=== PATIENT | male | born 1995 | race Caucasian/White ===

== ENCOUNTER 2021-10-16 06:42 | Emergency (ER) | payer BC ==
[~2021-10-16] VITALS: Ht 182.9 cm; Wt 72.7 kg
[2021-10-16 06:50] VITALS: TEMP 98.4
[2021-10-16 07:24] LABS: BASO % 0.5 % (0.0-2.0); EOS # 0.1 K/mm3 (0.0-0.7); EOS % 0.9 % (0.0-4.0); GRAN # 3.1 K/mm3 (1.4-6.5); HEMATOCRIT 41.6 % (42.0-52.0); LYMPH # 4.3 K/mm3 (1.2-3.4); LYMPH % 52.6 % (20.0-51.0); MEAN CELL VOLUME 85 fl (80.0-100.0); MEAN CORPUSCULAR HEMOGLOBIN 31 pg (27-31); MEAN CORPUSCULAR HGB CONC 36 g/dl (33.0-37.0); MEAN PLATELET VOLUME 10.9 fl (7.4-10.4); MONO # 0.6 K/mm3 (0.1-0.6); MONO % 7.9 % (1.7-9.3); PLATELET COUNT 231 K/mm3 (130-400); RED BLOOD COUNT 4.88 M/mm3 (4.20-5.60); REDCELL DISTRIBUTION WIDTH-CV 11.4 % (11.5-14.5)
[2021-10-16 07:43] LABS: COLLECTION METHOD CLEAN CATCH
[2021-10-16 07:45] LABS: ALBUMIN 4.9 gm/dL (3.5-5.0); BILIRUBIN,TOTAL 1.5 mg/dL (0.2-1.2); CALCIUM 9.8 mg/dL (8.4-10.2); CREATININE, serum 1.08 mg/dL (0.72-1.25); POTASSIUM 3.2 mmol/L (3.5-4.5); TOTAL PROTEIN 7.1 gm/dL (6.2-8.1)
[2021-10-16 08:05] LABS: MUCOUS Present (NOT PRESENT); PH 6 (5-8); SQUAMOUS EPITHELIAL None Seen /hpf (0-10); URINE APPEARANCE Hazy (CLEAR/HAZY); URINE BACTERIA None Seen /hpf (NONE SEEN); URINE BILIRUBIN Negative (NEGATIVE); URINE BLOOD 3+ (NEGATIVE); URINE COLOR Yellow (YELLOW); URINE GLUCOSE Negative (NEGATIVE); URINE KETONE 1+ (NEGATIVE); URINE LEUKOCYTE ESTERASE Negative (NEGATIVE); URINE NITRATE Negative (NEGATIVE); URINE PROTEIN(semi-quant) 1+ (NEGATIVE); URINE RBC >50 /hpf (0-2); URINE UROBILINOGEN Negative (NEGATIVE)
[2021-10-16] MEDS ORDERED: ZOFRAN ODT4 MG PO (08:33)
[2021-10-16] MEDS ORDERED: ROXICODONE 55 MG/TAB PO (08:33)
[2021-10-16 08:52] VITALS: BP 106/52; PULSE 76
== END 2021-10-16 08:52 | disposition home or self-care (01) ==
LOC: COL.ER 06:42
PROVIDERS: Emergency Medicine
DX: N20.2 Calculus of kidney with calculus of ureter (principal)
CPT/HCPCS: J1170; J2270; J2405; J2543; J7030; Q9967

== ENCOUNTER 2021-12-06 07:46 | Emergency (ER) | payer BC ==
[~2021-12-06] VITALS: Ht 182.9 cm; Wt 72.7 kg
[~2021-12-06 07:46] MED LIST: ROXICODONE 55 MG/TAB PO; ZOFRAN ODT4 MG PO
[2021-12-06 07:51] VITALS: TEMP 97.1
[2021-12-06 08:06] LABS: COLLECTION METHOD CLEAN CATCH
[2021-12-06 08:11] LABS: BASO % 0.5 % (0.0-2.0); EOS # 0.1 K/mm3 (0.0-0.7); EOS % 1.4 % (0.0-4.0); GRAN # 2.3 K/mm3 (1.4-6.5); GRAN % 40.3 % (42.2-75.2); HEMATOCRIT 40.8 % (42.0-52.0); HEMOGLOBIN 14.4 g/dl (13.5-18.0); LYMPH # 2.8 K/mm3 (1.2-3.4); LYMPH % 49.6 % (20.0-51.0); MEAN CELL VOLUME 86 fl (80.0-100.0); MEAN CORPUSCULAR HEMOGLOBIN 30 pg (27-31); MEAN CORPUSCULAR HGB CONC 35 g/dl (33.0-37.0); MEAN PLATELET VOLUME 10.6 fl (7.4-10.4); MONO # 0.5 K/mm3 (0.1-0.6); PLATELET COUNT 170 K/mm3 (130-400); RED BLOOD COUNT 4.74 M/mm3 (4.20-5.60); REDCELL DISTRIBUTION WIDTH-CV 11.6 % (11.5-14.5)
[2021-12-06 08:15] LABS: MUCOUS Present (NOT PRESENT); PH 6 (5-8); SQUAMOUS EPITHELIAL None Seen /hpf (0-10); URINE APPEARANCE Hazy (CLEAR/HAZY); URINE BACTERIA None Seen /hpf (NONE SEEN); URINE BILIRUBIN Negative (NEGATIVE); URINE BLOOD 1+ (NEGATIVE); URINE COLOR Yellow (YELLOW); URINE GLUCOSE Negative (NEGATIVE); URINE KETONE Negative (NEGATIVE); URINE LEUKOCYTE ESTERASE Negative (NEGATIVE); URINE NITRATE Negative (NEGATIVE); URINE PROTEIN(semi-quant) Negative (NEGATIVE); URINE UROBILINOGEN Negative (NEGATIVE)
[2021-12-06 08:27] LABS: ALBUMIN 4.7 gm/dL (3.5-5.0); BILIRUBIN,TOTAL 1.5 mg/dL (0.2-1.2); CALCIUM 9.3 mg/dL (8.4-10.2); CREATININE, serum 1.12 mg/dL (0.72-1.25); POTASSIUM 4.1 mmol/L (3.5-4.5); TOTAL PROTEIN 6.7 gm/dL (6.2-8.1)
[2021-12-06] MEDS ORDERED: FLOMAX 0.40.4 MG/CAP PO (09:10)
[2021-12-06] MEDS ORDERED: PERCOCET 325 MG1 TA2 PO (09:10)
[2021-12-06] MEDS ORDERED: ZOFRAN ODT4 MG PO (09:10)
[2021-12-06 09:27] VITALS: BP 125/81; PULSE 71
[2021-12-06] MEDS ORDERED: PYRIDIUM 100MG100 MG PO (17:34)
[2021-12-06] MEDS ORDERED: NORCO 325 MG-51 TAB PO (17:34)
== END 2021-12-06 09:27 | disposition home or self-care (01) ==
LOC: COL.ER 07:46
PROVIDERS: Personal Emergency Response Attendant
DX: N13.2 Hydronephrosis with renal and ureteral calculous obstruction (principal)
CPT/HCPCS: J1885; J2270; J2405; J7030

== ENCOUNTER 2021-12-06 14:37 | Day surgery (SDC) | payer BC ==
[~2021-12-06 14:37] MED LIST changes: +FLOMAX 0.40.4 MG/CAP PO; +PERCOCET 325 MG1 TA2 PO
[2021-12-06 15:46] VITALS: BP 107/59; PULSE 78; TEMP 97.7
[2021-12-06] MEDS ORDERED: PYRIDIUM 100MG100 MG PO (17:34)
[2021-12-06] MEDS ORDERED: NORCO 325 MG-51 TAB PO (17:34)
[2021-12-06 18:40] VITALS: BP 95/69; PULSE 70; TEMP 97.6
--- NOTE | 2021-12-06 18:49 | NUR ---
Pt just arrived to the floor from [facility]. He is alert and oriented. HE has voided, complaints of some burning with urination. He did ambulate to the bathroom and back to bed. VSS. Heart rate regular, lungs clear. IV to left wrist with fluids infusing. Educated on criteria for discharge
[2021-12-06 18:55] VITALS: BP 109/88; PULSE 63
[2021-12-06 19:03] VITALS: TEMP 97.2
[2021-12-06 19:10] VITALS: BP 115/76; PULSE 58
[2021-12-06 19:25] VITALS: BP 132/62; PULSE 72
--- NOTE | 2021-12-06 20:02 | NUR ---
Report from day shift. Patient here for cysto with stent. Patient alert and oriented. Discharge instructions provided, medication information given, and patient denies any questions or concerns. IV dc'd. Patient escorted out via wheelchair.
== END 2021-12-06 20:08 | disposition home or self-care (01) ==
LOC: SDCO 14:37 → INPTSU 14:37 → EDSTATUS 16:30 → INPTSU 19:36 → SURG 19:36 → SDCO 20:08 → SURG 20:08
DX: N13.2 Hydronephrosis with renal and ureteral calculous obstruction (principal)
CPT/HCPCS: OP; C1769; C2617; G0378; J0690; J1100; J1885; J2405; J2704; J3010; J7120; Q9967

== ENCOUNTER 2021-12-14 13:43 | Emergency (ER) | payer BC ==
[~2021-12-14] VITALS: Ht 182.9 cm; Wt 72.7 kg
[~2021-12-14 13:43] MED LIST changes: +NORCO 325 MG-51 TAB PO; +PYRIDIUM 100MG100 MG PO
[2021-12-14 14:18] VITALS: PULSE 86; TEMP 98.2
[2021-12-14 15:56] LABS: COLLECTION METHOD CLEAN CATCH
[2021-12-14 16:02] LABS: BASO % 0.3 % (0.0-2.0); EOS % 0.1 % (0.0-4.0); GRAN % 78.5 % (42.2-75.2); HEMATOCRIT 39.3 % (42.0-52.0); HEMOGLOBIN 14.4 g/dl (13.5-18.0); LYMPH # 1.2 K/mm3 (1.2-3.4); LYMPH % 11.5 % (20.0-51.0); MEAN CELL VOLUME 84 fl (80.0-100.0); MEAN CORPUSCULAR HEMOGLOBIN 31 pg (27-31); MEAN CORPUSCULAR HGB CONC 37 g/dl (33.0-37.0); MEAN PLATELET VOLUME 10.1 fl (7.4-10.4); MONO # 0.9 K/mm3 (0.1-0.6); MONO % 9.2 % (1.7-9.3); PLATELET COUNT 178 K/mm3 (130-400); REDCELL DISTRIBUTION WIDTH-CV 11.3 % (11.5-14.5)
[2021-12-14 16:05] LABS: PH 8 (5-8); SQUAMOUS EPITHELIAL None Seen /hpf (0-10); URINE APPEARANCE Clear (CLEAR/HAZY); URINE BACTERIA None Seen /hpf (NONE SEEN); URINE BILIRUBIN Negative (NEGATIVE); URINE BLOOD 2+ (NEGATIVE); URINE COLOR Amber (YELLOW); URINE GLUCOSE Negative (NEGATIVE); URINE KETONE Trace (NEGATIVE); URINE LEUKOCYTE ESTERASE Negative (NEGATIVE); URINE NITRATE Positive (NEGATIVE); URINE PROTEIN(semi-quant) Negative (NEGATIVE); URINE RBC None Seen /hpf (0-2); URINE UROBILINOGEN Negative (NEGATIVE)
[2021-12-14 16:22] LABS: ALBUMIN 4.7 gm/dL (3.5-5.0); BILIRUBIN,TOTAL 1.5 mg/dL (0.2-1.2); CALCIUM 9.4 mg/dL (8.4-10.2); CREATININE, serum 1.05 mg/dL (0.72-1.25); POTASSIUM 3.8 mmol/L (3.5-4.5); TOTAL PROTEIN 6.9 gm/dL (6.2-8.1)
[2021-12-14] MEDS ORDERED: ZOFRAN ODT4 MG PO (16:58)
[2021-12-14] MEDS ORDERED: ROXICODONE 55 MG/TAB PO (16:58)
[2021-12-14 17:20] VITALS: BP 104/74
== END 2021-12-14 17:20 | disposition home or self-care (01) ==
LOC: COL.ER 13:43
PROVIDERS: Student in an Organized Health Care Education/Training Program
DX: G89.18 Other acute postprocedural pain (principal); R10.9 Unspecified abdominal pain

== ENCOUNTER 2022-01-30 01:18 | Emergency (ER) | payer BC ==
[~2022-01-30] VITALS: Ht 182.9 cm; Wt 72.7 kg
[2022-01-30 01:29] VITALS: TEMP 98.5
[2022-01-30 01:59] LABS: BASO % 0.6 % (0.0-2.0); EOS # 0.1 K/mm3 (0.0-0.7); EOS % 1.1 % (0.0-4.0); GRAN # 3.1 K/mm3 (1.4-6.5); GRAN % 46.8 % (42.2-75.2); HEMATOCRIT 40.9 % (42.0-52.0); HEMOGLOBIN 14.7 g/dl (13.5-18.0); LYMPH # 2.9 K/mm3 (1.2-3.4); LYMPH % 44.4 % (20.0-51.0); MEAN CELL VOLUME 86 fl (80.0-100.0); MEAN CORPUSCULAR HEMOGLOBIN 31 pg (27-31); MEAN CORPUSCULAR HGB CONC 36 g/dl (33.0-37.0); MEAN PLATELET VOLUME 10.4 fl (7.4-10.4); MONO # 0.5 K/mm3 (0.1-0.6); MONO % 6.9 % (1.7-9.3); PLATELET COUNT 186 K/mm3 (130-400); RED BLOOD COUNT 4.75 M/mm3 (4.20-5.60); REDCELL DISTRIBUTION WIDTH-CV 11.6 % (11.5-14.5)
[2022-01-30 02:41] LABS: ALANINE AMINOTRANSFERASE 24 U/L (0-55); ALBUMIN 4.7 gm/dL (3.5-5.0); ALKALINE PHOSPHATASE 67 U/L (40-150); ANION GAP 13 mmol/L (7-16); AST,SGOT 17 U/L (5-34); BLOOD UREA NITROGEN 18 mg/dL (9-21); CALCIUM 9.8 mg/dL (8.4-10.2); CARBON DIOXIDE 20 mmol/L (22-29); CHLORIDE 106 mmol/L (98-107); CREATININE, serum 0.99 mg/dL (0.72-1.25); GLUCOSE 87 mg/dL (70-99); POTASSIUM 3.7 mmol/L (3.5-4.5); SODIUM 139 mmol/L (136-145); TOTAL PROTEIN 7.3 gm/dL (6.2-8.1)
[2022-01-30 02:56] LABS: TROPONIN-I < 0.010 ng/mL (0.00-0.033)
[2022-01-30 03:10] VITALS: BP 125/69; PULSE 60
== END 2022-01-30 03:08 | disposition home or self-care (01) ==
LOC: COL.ER 01:18
PROVIDERS: Emergency Medicine
DX: R06.02 Shortness of breath (principal); Z20.822 Contact with and (suspected) exposure to COVID-19; Z28.311 Partially vaccinated for COVID-19